=== PATIENT | female | born 1945 | race Caucasian/White ===

== ENCOUNTER → 2017-06-18 | Outpatient (REF) | payer MEDICARE | LOC: M SMT 12:55 | PROVIDERS: ATTEND Nurse Practitioner Women's Health | DX: N39.0 Urinary tract infection, site not specified (principal) ==

== ENCOUNTER → 2017-06-22 | Outpatient (CLI) | payer MEDICARE ==
--- NOTE | 2017-06-22 09:01 | REP ---
CT abdomen and pelvis without IV or oral contrast: Renal stone protocol. History: History of kidney stone. Comparison study: [facility] CT exam January 23, 2017. CT findings: The lung bases are clear. There is fairly prominent vascular calcification in the left coronary artery distribution. Granulomatous calcifications are scattered about the spleen and liver. There is mild diffuse fatty infiltration of the liver again noted. No focal hepatic lesion is seen. The gallbladder and pancreas are unremarkable. No adrenal lesion is seen. No retroperitoneal mass or adenopathy is seen. There are bilateral intrarenal calculi. In the lower pole of the right kidney, there are five to six calculi. The largest of these is a calculus measuring 5 mm in greatest diameter. No hydronephrosis is seen. No right ureteral calculus is observed. In the lower pole of the left kidney, there are two calculi, the largest of which measures 3 mm. No hydronephrosis or ureteral stone is seen on the left. No bladder calculus is seen. The uterus is somewhat retroverted. There is a calcified subserosal small uterine fibroid measuring 1.7 cm. This is unchanged. No ovarian abnormality is seen. There is left colonic diverticulosis again noted. A normal appendix is seen. A small umbilical hernia transmits abdominal fat. No bony destructive lesion is appreciated. Impression: Bilateral intrarenal nephrolithiasis. Mild fatty infiltration of the liver. Left colonic diverticulosis. No hydronephrosis or ureteral stone seen. Signed by Vincent Hebert MD 06/22/2017 03:48 P
== END ==
LOC: M RAD 07:59
PROVIDERS: ATTEND Nurse Practitioner Women's Health
DX: Z87.442 Personal history of urinary calculi (principal)

== ENCOUNTER → 2017-12-25 | Outpatient (CLI) | payer MEDICARE ==
[2017-12-25 13:48] LABS: AMORPHOUS SEDIMENT SMALL (NEGATIVE); APPEARANCE, URINE HAZY (CLEAR); BACTERIA, URINE AUTO 1+ (NEGATIVE); BILIRUBIN, URINE AUTO NEGATIVE (NEGATIVE); BLOOD, URINE BLOOD NEGATIVE (NEGATIVE); COLOR, URINE STRAW (YELLOW); GLUCOSE, URINE (UA) AUTO 3+ mg/dL (NEGATIVE); KETONE, URINE AUTO NEGATIVE (NEGATIVE); LEUKOCYTE ESTERASE, URINE AUTO 3+ (NEGATIVE); NITRITE, URINE AUTO NEGATIVE (NEGATIVE); PROTEIN, URINE AUTO NEGATIVE (NEGATIVE); RBC, URINE AUTO 2 /HPF (0-3); SPECIFIC GRAVITY URINE AUTO 1.007 (1.002-1.035); SQUAMOUS EPITHELIAL CELL UR AU 4 /HPF (0-6); UROBILINOGEN, URINE AUTO 0.2 mg/dL (0.0-2.0); WBC, URINE AUTO 6 /HPF (0-3)
== END ==
LOC: M SMT 09:45
DX: N20.0 Calculus of kidney (principal)
CPT/HCPCS: 81001